=== PATIENT | female | born 1950 | race Caucasian/White ===

== ENCOUNTER 2018-07-14 05:27 | Day surgery (SDC) | payer MEDICARE, BC ==
[2018-07-14] MEDS ORDERED: Dextrose 5%-Lactated Ringers 1,000 ML IV SCH (06:00)
[2018-07-14] MEDS ORDERED: Propofol 200 MG/20 ML SDV ONE (07:11)
[2018-07-14] MEDS ORDERED: fentaNYL 100 MCG/2 ML SDV ONE (07:11)
[2018-07-14] MEDS ORDERED: Midazolam 1 MG/ML 2 ML SDV ONE (07:11)
--- NOTE | 2018-07-19 12:14 | OR ---
DATE OF PROCEDURE: 07/14/2018 PREOPERATIVE DIAGNOSIS: A strong family history with indications for screening colonoscopy. POSTOPERATIVE DIAGNOSES: 1. Uncomplicated diverticulosis. 2. No polyps or other signs of neoplasia. PROCEDURE: Flexible colonoscopy. ANESTHESIA: IV sedation. INDICATION FOR PROCEDURE: This is a 68-year-old presenting for a screening colonoscopy. She does have a strong family history of colon carcinoma, and the plan is to proceed with a flexible colonoscopy with biopsies and/or polypectomies as indicated. Potential risks including bleeding and perforation were discussed, and the patient wishes to proceed. DETAILS OF PROCEDURE: The patient was taken to the operating room and placed in a left lateral decubitus position. IV sedation was administered, after which the initial digital rectal exam was performed and was unremarkable. Colonoscope was then passed to the level of the rectum with retroflexion revealing uncomplicated hemorrhoidal columns. The scope was eventually passed to the level of the cecum. The prep was fairly good. There was some uncomplicated diverticulosis on the left side of the colon, otherwise no abnormalities were noted. Strictly, there were no areas of colitis and no areas of polyps or other signs of neoplasia. The scope was then withdrawn, the above findings reconfirmed, and the procedure then concluded. The patient was taken to the recovery room in satisfactory condition. Recommendation would be to repeat the colonoscopy in 5 years given the patient's family history of colon neoplasia. Stef Haji MD Job #: [id number]
== END 2018-07-14 09:23 | disposition home or self-care (01) ==
LOC: JP.SDS 05:27
PROVIDERS: ATTEND Surgery
DX: Z12.11 Encounter for screening for malignant neoplasm of colon (principal); K57.30 Diverticulosis of large intestine without perforation or abscess without bleeding; F17.200 Nicotine dependence, unspecified, uncomplicated; I48.91 Unspecified atrial fibrillation; Z87.19 Personal history of other diseases of the digestive system; Z80.0 Family history of malignant neoplasm of digestive organs
CPT/HCPCS: G0105; J2250; J2704; J3010; J7042

== ENCOUNTER 2020-09-18 10:18 | Emergency (ER) | payer MEDICARE, BC ==
--- NOTE | 2020-09-18 10:58 | EDM.PDOC ---
ED HPI GENERAL MEDICAL PROBLEM - General Chief Complaint: Cardiovascular Problem Stated Complaint: AFIB Time Seen by Provider: 09/18/20 10:32 Source of Information: Reports: Patient, Old Records, RN Notes Reviewed History Limitations: Reports: No Limitations - History of Present Illness INITIAL COMMENTS - FREE TEXT/NARRATIVE: 70-year-old female presents emergency department day complaint of palpitations, she states this started a couple hours before she does have the sensation where her heart races and then slows back down when it is going fast she does feel short of breath no chest pain no nausea vomiting no diaphoresis no heart history remote tobacco use history. Does have a history of palpitations in the past well over 10 years ago has been on metoprolol for several years. Review of old records show that she did have an event of atrial fibrillation approximately 10 years ago where she was chemically converted with diltiazem, her chads vas 2 score was 1 at the time only because of her sex. - Related Data Allergies Allergy/AdvReac Type Severity Reaction Status Date / Time No Known Allergies Allergy Verified 09/18/20 10:28 Home Meds: Home Meds Alendronate Sodium [Fosamax] 70 mg PO .Q7DAYS 07/10/18 [History] Calcium Carbonate/Vitamin D3 [Calcium 600 + Vit D 200] 1 tab PO BID 07/10/18 [History] Cetirizine HCl/Pseudoephedrine [Cetirizine-Pse ER 5-120 mg Tab] 1 tab PO BID PRN 07/10/18 [History] Magnesium 250 mg PO BEDTIME 07/10/18 [History] Metoprolol Succinate [Toprol XL 50mg] 50 mg PO DAILY 07/10/18 [History] Multivitamin with Minerals [Multiple Vitamin] 1 tab PO DAILY 07/10/18 [History] Triamcinolone Acetonide [Nasacort] 2 spray NS DAILY 07/10/18 [History] Past Medical History HEENT History: Reports: Allergic Rhinitis, Cataract, Impaired Vision Cardiovascular History: Reports: Afib (Paroxysmal) Gastrointestinal History: Reports: Colon Polyp Dermatologic History: Reports: Eczema - Infectious Disease History Infectious Disease History: Reports: Chicken Pox, Measles, Mumps, Shingles - Past Surgical History HEENT Surgical History: Reports: Tonsillectomy Cardiovascular Surgical History: Reports: None GI Surgical History: Reports: Colonoscopy, Hernia, Abdominal Endocrine Surgical History: Reports: Thyroid Biopsy Dermatological Surgical History: Reports: None Social & Family History - Tobacco Use Tobacco Use Status *Q: Never Tobacco User - Caffeine Use Caffeine Use: Reports: None - Recreational Drug Use Recreational Drug Use: No ED ROS GENERAL - Review of Systems Review Of Systems: See Below Constitutional: Reports: No Symptoms HEENT: Reports: No Symptoms Respiratory: Reports: Shortness of Breath Cardiovascular: Reports: Palpitations. Denies: Chest Pain GI/Abdominal: Reports: No Symptoms : Reports: No Symptoms ED EXAM, GENERAL - Physical Exam Exam: See Below Exam Limited By: No Limitations General Appearance: Alert, WD/WN, No Apparent Distress Respiratory/Chest: No Respiratory Distress, Lungs Clear, Normal Breath Sounds, No Accessory Muscle Use, Chest Non-Tender Cardiovascular: Tachycardia GI/Abdominal: Soft, Non-Tender Extremities: Normal Inspection, No Pedal Edema Course - Vital Signs Last Recorded V/S: Last Vital Signs Temp 97.0 F 09/18/20 10:32 Pulse 74 09/18/20 12:53 Resp 15 09/18/20 12:53 BP 114/71 09/18/20 12:53 Pulse Ox 97 09/18/20 12:53 - Orders/Labs/Meds Orders: Active Orders 24 hr Category Date Time Status Cardiac Monitoring [RC] .As Directed Care 09/18/20 10:51 Active EKG Documentation Completion [RC] ASDIRECTED Care 09/18/20 10:51 Active Metoprolol Tartrate [Lopressor] Med 09/18/20 12:57 Once 25 mg PO ONETIME ONE Sodium Chloride 0.9% [Normal Saline] 1,000 ml Med 09/18/20 12:00 Active IV ASDIRECTED EKG 12 Lead [EK] Stat Ther 09/18/20 10:51 Ordered Medication Orders Sodium Chloride (Normal Saline) 1,000 mls @ 125 mls/hr IV ASDIRECTED ADITI Last Admin: 09/18/20 11:59 Dose: 125 mls/hr Documented by: CHERRY Metoprolol Tartrate (Metoprolol Tartrate 25 Mg Tab) 25 mg PO ONETIME ONE Stop: 09/18/20 12:58 Labs: Laboratory Tests 09/18/20 09/18/20 09/18/20 Range/Units 10:28 10:28 10:28 WBC 7.6 (4.5-11.0) K/uL RBC 4.74 (3.30-5.50) M/uL Hgb 14.5 (12.0-15.0) g/dL Hct 43.8 (36.0-48.0) % MCV 92 (80-98) fL MCH 31 (27-31) pg MCHC 33 (32-36) % Plt Count 227 (150-400) K/uL Neut % (Auto) 59 (36-66) % Lymph % (Auto) 32 (24-44) % Bulloch % (Auto) 7 H (2-6) % Eos % (Auto) 2 (2-4) % Baso % (Auto) 1 (0-1) % Sodium 144 (140-148) mmol/L Potassium 4.1 (3.6-5.2) mmol/L Chloride 105 (100-108) mmol/L Carbon Dioxide 26 (21-32) mmol/L Anion Gap 13.4 (5.0-14.0) mmol/L BUN 20 H (7-18) mg/dL Creatinine 0.7 (0.6-1.0) mg/dL Est Cr Clr Drug Dosing 57.03 mL/min Estimated GFR (MDRD) > 60 (>60) Glucose 93 (74-106) mg/dL Lactic Acid 1.6 (0.4-2.0) mmol/L Calcium 9.7 (8.5-10.1) mg/dL Total Bilirubin 0.2 (0.2-1.0) mg/dL AST 25 (15-37) U/L ALT 29 (12-78) U/L Alkaline Phosphatase 94 (46-116) U/L Troponin I < 0.017 (0.000-0.056) ng/mL Total Protein 7.5 (6.4-8.2) g/dL Albumin 3.9 (3.4-5.0) g/dL Globulin 3.6 H (2.3-3.5) g/dL Albumin/Globulin Ratio 1.1 L (1.2-2.2) TSH, Ultra Sensitive 0.204 L (0.358-3.740) uIU/mL Meds: Medications Generic Name Dose Route Start Last Admin Trade Name Freq PRN Reason Stop Dose Admin Sodium Chloride 1,000 mls @ 125 mls/hr 09/18/20 12:00 09/18/20 11:59 Normal Saline IV 125 mls/hr ASDIRECTED ADITI Administration Metoprolol Tartrate 25 mg 09/18/20 12:57 Metoprolol Tartrate 25 Mg Tab PO 09/18/20 12:58 ONETIME ONE Discontinued Medications Generic Name Dose Route Start Last Admin Trade Name Dennisq PRN Reason Stop Dose Admin Diltiazem HCl 12 mg 09/18/20 11:48 09/18/20 11:59 Diltiazem 25 Mg/5 Ml Sdv IVPUSH 09/18/20 11:49 12 mg ONETIME ONE Administration Departure - Departure Time of Disposition: 13:00 Disposition: Home, Self-Care 01 Condition: Fair Clinical Impression: Sinus arrhythmia Referrals: Robert Rosa MD [Primary Care Provider] - Forms: ED Department Discharge Additional Instructions: Recommend increasing your Toprol-XL from 50 mg once a day to 100 mg once a day. Please follow-up with your primary care provider at next available appointment for review of your heart rate. Also further evaluation is needed for your low TSH value. Call or return to the emergency department worsening of symptoms Sepsis Event Note (ED) - Evaluation Sepsis Screening Result: No Definite Risk - Focused Exam Vital Signs: Vital Signs Temp Pulse Resp BP Pulse Ox 09/18/20 12:53 74 15 114/71 97 09/18/20 12:31 68 16 120/69 98 09/18/20 12:16 97 16 116/75 98 09/18/20 11:58 79 16 119/72 98 09/18/20 10:32 97.0 F 133 H 16 134/78 99 - My Orders Last 24 Hours: My Active Orders 09/18/20 10:51 Cardiac Monitoring [RC] .As Directed EKG Documentation Completion [RC] ASDIRECTED EKG 12 Lead [EK] Stat 09/18/20 12:00 Sodium Chloride 0.9% [Normal Saline] 1,000 ml IV ASDIRECTED 09/18/20 12:57 Metoprolol Tartrate [Lopressor] 25 mg PO ONETIME ONE - Assessment/Plan Last 24 Hours: My Active Orders 09/18/20 10:51 Cardiac Monitoring [RC] .As Directed EKG Documentation Completion [RC] ASDIRECTED EKG 12 Lead [EK] Stat 09/18/20 12:00 Sodium Chloride 0.9% [Normal Saline] 1,000 ml IV ASDIRECTED 09/18/20 12:57 Metoprolol Tartrate [Lopressor] 25 mg PO ONETIME ONE Plan: Assessment Acuity = acute Site and laterality = sinus arrhythmia complicated patient with known history of atrial fib flutter approximately 10 years ago Etiology = unknown Manifestations = palpitations Location of injury = Home Lab values = CBC CMP troponin unremarkable chest x-ray shows cardiomegaly TSH 0.204 concerning for hyperthyroid type pattern Plan She had good response to Cardizem 12 mg IV push heart rate slowed down 7580 every once in a while she would have a change in rate consistent with a sinus arrhythmia. Plan is to increase her metoprolol to 100 mg once a day the long- acting. In the meantime she was given 25 mg short acting prior to discharge. She will follow-up with her primary care for further evaluation of her arrhythmia, the low value of the TSH. She did have an echocardiogram approximately 10 years ago which was normal however chest x-ray is now showing cardiomegaly which is new. This note was dictated using [employer] voice recognition software please call with any questions on syntax or grammar.
--- NOTE | 2020-09-18 11:24 | CR ---
CHEST: Portable 09/18/2020 and 11:09 AM CLINICAL HISTORY:Chest pain COMPARISON:CT chest 2016 FINDINGS: The heart is mildly enlarged. Pulmonary vascularity is normal. There is some apical thickening on the right. No infiltrate effusion or pneumothorax is seen. Impression: Mild cardiomegaly No acute cardiopulmonary process.
[2020-09-18] MEDS ORDERED: Diltiazem 25 MG/5 ML SDV IVPUSH ONE (11:48)
[2020-09-18] MEDS ORDERED: Sodium Chloride 0.9% 1,000 ML IV SCH (12:00)
[2020-09-18] MEDS ORDERED: Metoprolol Tartrate 25 MG Tab PO ONE (12:57)
== END 2020-09-18 13:44 | disposition home or self-care (01) ==
LOC: JP.ED 10:18
DX: I49.8 Other specified cardiac arrhythmias (principal); I48.91 Unspecified atrial fibrillation
CPT/HCPCS: 36415; 71045; 71045-26; 80053; 83605; 84443; 84484; 85025; 93005; 96374; 99283; 99285-25; A9270-GY; J3490; J7030

== ENCOUNTER 2023-07-16 06:19 | Day surgery (SDC) | payer MEDICARE, BC ==
[2023-07-16] MEDS ORDERED: Lactated Ringers 1,000 ML IV SCH (07:30)
[2023-07-16] MEDS ORDERED: Propofol 200 MG/20 ML SDV ONE ×2 (07:39→08:14)
[2023-07-16] MEDS ORDERED: fentaNYL 100 MCG/2 ML SDV ONE (07:39)
== END 2023-07-16 10:00 | disposition home or self-care (01) ==
LOC: JP.SDS 06:19
PROVIDERS: ATTEND Student in an Organized Health Care Education/Training Program
DX: Z12.11 Encounter for screening for malignant neoplasm of colon (principal); K63.5 Polyp of colon; K57.30 Diverticulosis of large intestine without perforation or abscess without bleeding; I48.91 Unspecified atrial fibrillation
CPT/HCPCS: 45380; 88305; J2704; J3010; J7120

== ENCOUNTER 2024-11-28 11:12 | Emergency (ER) | payer MEDICARE, BC ==
[2024-11-28 12:07] LABS: BASOPHILS ABSOLUTE AUTO 0.04 K/uL (0.00-0.10); BASOPHILS PERCENT AUTO 0.5 % (0.1-1.3); EOSINOPHILS ABSOLUTE AUTO 0.17 K/uL (0.00-0.40); EOSINOPHILS PERCENT AUTO 2.1 % (0.0-5.4); HEMATOCRIT 38.1 % (34.3-46.0); HEMOGLOBIN 12.9 g/dL (11.2-15.5); IMMATURE GRAN ABSOLUTE AUTO 0.04 K/uL (0.00-0.23); IMMATURE GRAN PERCENT AUTO 0.5 % (0.0-0.7); LYMPHOCYTES ABSOLUTE AUTO 2.14 K/uL (0.8-3.3); LYMPHOCYTES PERCENT AUTO 26.6 % (11.4-47.7); MEAN CORPUSCULAR HEMOGLOBIN 31.9 pg (31.6-35.5); MEAN CORPUSCULAR HGB CONC 33.9 g/dL (31.6-35.5); MEAN CORPUSCULAR VOLUME 94.3 fL (81.4-99.0); NEUTROPHILS ABSOLUTE AUTO 5.26 K/uL (1.0-7.6); NEUTROPHILS PERCENT AUTO 65.3 % (40.0-78.1); PLATELET COUNT,PLT 182 K/uL (130-375); RED BLOOD CELL COUNT 4.04 M/uL (3.77-5.24); WHITE BLOOD CELL COUNT,WBC 8.1 K/uL (3.2-11.0)
[2024-11-28 12:19] LABS: A/G RATIO 1.2 (1.2-2.2); ALANINE AMINOTRANSFERASE,ALT 21 U/L (12-78); ALBUMIN 3.7 g/dL (3.4-5.0); ALKALINE PHOSPHATASE 76 U/L (46-116); ASPARTATE AMNIOTRANSFERASE,AST 21 U/L (15-37); BILIRUBIN TOTAL 0.5 mg/dL (0.2-1.0); BLOOD UREA NITROGEN,BUN 20 mg/dL (7-18); CALCIUM 9.7 mg/dL (8.5-10.1); CARBON DIOXIDE,CO2 27 mmol/L (21-32); CHLORIDE,CL 103 mmol/L (100-108); CREATININE 0.8 mg/dL (0.6-1.0); EST CRCL DRUG DOSING (CG) 46.19 mL/min; ESTIMATED GFR 78 mL/min (>60); GLUCOSE RANDOM 89 mg/dL (74-106); POTASSIUM,K 4.4 mmol/L (3.6-5.2); PROTEIN TOTAL,TP 6.9 g/dL (6.4-8.2); SODIUM,NA 137 mmol/L (140-148)
[2024-11-28 12:20] LABS: ANION GAP 11.4 mmol/L (5.0-14.0)
== END 2024-11-28 14:38 | disposition home or self-care (01) ==
LOC: JP.ED 11:12
DX: R07.89 Other chest pain (principal); E78.00 Pure hypercholesterolemia, unspecified; E03.9 Hypothyroidism, unspecified; Z79.82 Long term (current) use of aspirin; Z79.890 Hormone replacement therapy; Z79.899 Other long term (current) drug therapy
CPT/HCPCS: 36415; 71046; 80053; 83735; 83880; 84484; 85025; 93005; 93010; 99283; 99285

== ENCOUNTER 2025-03-21 12:52 | Emergency (ER) | payer MEDICARE, BC ==
[2025-03-21 13:27] LABS: BASOPHILS ABSOLUTE AUTO 0.05 K/uL (0.00-0.10); BASOPHILS PERCENT AUTO 0.7 % (0.1-1.3); EOSINOPHILS ABSOLUTE AUTO 0.18 K/uL (0.00-0.40); EOSINOPHILS PERCENT AUTO 2.4 % (0.0-5.4); IMMATURE GRAN ABSOLUTE AUTO 0.04 K/uL (0.00-0.23); IMMATURE GRAN PERCENT AUTO 0.5 % (0.0-0.7); LYMPHOCYTES ABSOLUTE AUTO 2.31 K/uL (0.8-3.3); LYMPHOCYTES PERCENT AUTO 31.1 % (11.4-47.7); MONOCYTES ABSOLUTE AUTO 0.40 K/uL (0.20-0.90); MONOCYTES PERCENT AUTO 5.4 % (3.3-12.6); NEUTROPHILS ABSOLUTE AUTO 4.45 K/uL (1.0-7.6); NEUTROPHILS PERCENT AUTO 59.9 % (40.0-78.1); PLATELET COUNT,PLT 243 K/uL (130-375); RED BLOOD CELL COUNT 4.32 M/uL (3.77-5.24); WHITE BLOOD CELL COUNT,WBC 7.4 K/uL (3.2-11.0)
[2025-03-21 13:56] LABS: A/G RATIO 1.0 (1.2-2.2); ALANINE AMINOTRANSFERASE,ALT 22 U/L (12-78); ASPARTATE AMNIOTRANSFERASE,AST 25 U/L (15-37); BILIRUBIN TOTAL 0.5 mg/dL (0.2-1.0); BLOOD UREA NITROGEN,BUN 24 mg/dL (7-18); CARBON DIOXIDE,CO2 31 mmol/L (21-32); CHLORIDE,CL 101 mmol/L (100-108); CREATININE 1.2 mg/dL (0.6-1.0); ESTIMATED GFR 48 mL/min (>60); GLUCOSE RANDOM 87 mg/dL (74-106); POTASSIUM,K 4.2 mmol/L (3.6-5.2); PRO B-TYPE NATRIUR PEPT,BNPPRO 688 pg/mL (5-125); PROTEIN TOTAL,TP 7.6 g/dL (6.4-8.2); SODIUM,NA 139 mmol/L (140-148); TROPONIN I HIGH SENSITIVITY 6.1 pg/mL (<=60.3)
== END 2025-03-21 16:02 | disposition home or self-care (01) ==
LOC: JP.ED 12:52
DX: R00.2 Palpitations (principal); E78.00 Pure hypercholesterolemia, unspecified; E03.9 Hypothyroidism, unspecified; Z87.891 Personal history of nicotine dependence; Z79.899 Other long term (current) drug therapy; Z79.82 Long term (current) use of aspirin; Z79.890 Hormone replacement therapy
CPT/HCPCS: 36415; 71046; 71046-26; 80053; 83880; 84484; 85025; 93010; 99283; 99285